=== PATIENT | male | born 1985 | race Caucasian/White ===

== ENCOUNTER 2020-04-27 20:43 | Emergency (ER) | payer OTHER ==
[~2020-04-27] VITALS: Ht 185.4 cm; Wt 127.3 kg
[2020-04-27] MEDS ORDERED: ARIP5TAB8 PO (21:14)
[2020-04-27] MEDS ORDERED: TOPI100T37 PO (21:14)
[2020-04-27] MEDS ORDERED: GABA-1181 PO (21:14)
[2020-04-27 22:59] LABS: BASOPHILS % (AUTO) 0.5 % (0.0-2.0); EOSINOPHILS % (AUTO) 2.2 % (1.0-6.0); HEMATOCRIT 41.4 % (41-53); HEMOGLOBIN 13.9 g/dL (13.5-17.5); LYMPHOCYTES # (AUTO) 2.8 K/uL (1.0-4.8); LYMPHOCYTES % (AUTO) 33.6 % (22.0-44.0); MEAN CORPUSCULAR HGB CONC 33.5 G/dL (31.0-37.0); MEAN CORPUSCULAR VOLUME 87 fL (80-100); MONOCYTES # (AUTO) 0.8 K/uL (0.1-1.0); MONOCYTES % (AUTO) 9.4 % (2.0-9.0); NEUTROPHILS # (AUTO) 4.5 K/uL (1.8-7.7); NEUTROPHILS % (AUTO) 54.3 % (40.0-70.0); PLATELET COUNT (AUTO) 251 K/uL (150-450); RED BLOOD CELL COUNT(AUTO) 4.77 MIL/uL (4.50-5.90); RED CELL DISTRIBUTION WIDTH 13.8 % (11.5-14.5)
[2020-04-27 23:14] LABS: ANION GAP 9 mmol/L (8-16); CALCIUM, TOTAL 8.6 mg/dL (8.8-10.5); CARBON DIOXIDE 24 mmol/L (22-29); CHLORIDE 107 mmol/L (98-107); CREATININE 1.08 mg/dL (0.60-1.30); GLOMERULAR FILTR. RATE CALC > 60 mL/min (>60); GLUCOSE,RANDOM 104 mg/dL (70-110); POTASSIUM 3.8 mmol/L (3.5-5.1); SODIUM SERUM 140 mmol/L (136-145); UREA NITROGEN, BLOOD 13 mg/dL (7-18)
[2020-04-27 23:20] LABS: ALANINE AMINOTRANSFERASE 19 U/L (12-78); ALBUMIN 3.5 g/dL (3.4-5.0); ALKALINE PHOSPHATASE 88 U/L (46-116); ASPARTATE AMINOTRANSFERASE 8 U/L (15-37); BILIRUBIN,TOTAL 0.2 mg/dL (0.1-1.0); TOTAL PROTEIN, SERUM 6.7 g/dL (6.4-8.2)
[2020-04-28 00:53] LABS: AMPHET/METH SCREEN,URINE NEGATIVE (NEGATIVE); BARBITURATE SCREEN, URINE NEGATIVE (NEGATIVE); BENZODIAZEPINES SCREEN,URINE NEGATIVE (NEGATIVE); CANNABINOID SCREEN,URINE NEGATIVE (NEGATIVE); COCAINE SCREEN,URINE NEGATIVE (NEGATIVE); METHADONE SCREEN, URINE NEGATIVE (NEGATIVE); OPIATE SCREEN,URINE NEGATIVE (NEGATIVE)
[2020-04-28 00:59] LABS: PHENCYCLIDINE SCREEN,URINE NEGATIVE (NEGATIVE)
[2020-04-28 01:13] VITALS: BP 132/80
== END 2020-04-28 01:31 | disposition home or self-care (01) ==
LOC: EMS 20:44
DX: F31.9 Bipolar disorder, unspecified (principal); F41.9 Anxiety disorder, unspecified
CPT/HCPCS: 36415; 80053; 80307; 85025; 99285; G0480

== ENCOUNTER 2020-04-28 16:06 | Inpatient (IN) | payer MEDICAID ==
[~2020-04-28] VITALS: Ht 185.4 cm; Wt 119.9 kg
[~2020-04-28 16:06] MED LIST: ARIP5TAB8 PO; GABA-1181 PO; TOPI100T37 PO
[2020-04-28] MEDS ORDERED: ZOLPIDEM TARTRATE 10 MG TABLET PO PRN (21:00)
[2020-04-28] MEDS ORDERED: INFLUENZA VIRUS VACCINE QVS 2020-21 (6MO+)/PF 60 MCG/0.5 ML SYRINGE IM ONE (21:30)
[2020-04-29 00:14] VITALS: BP 127/77
[2020-04-29] MEDS ORDERED: DOCUSATE SODIUM 100 MG CAPSULE PO PRN (07:45)
[2020-04-29] MEDS ORDERED: LOPERAMIDE HCL 2 MG CAPSULE PO PRN (07:45)
[2020-04-29] MEDS ORDERED: ALBUTEROL SULFATE HFA 90 MCG/PUFF 8 GM INHALER IH PRN (07:45)
[2020-04-29] MEDS ORDERED: IBUPROFEN 400 MG TABLET PO PRN (07:45)
[2020-04-29] MEDS ORDERED: ONDANSETRON HCL 4 MG TABLET PO PRN (07:45)
[2020-04-29] MEDS ORDERED: CloNIDine HCL 0.1 MG TABLET PO PRN (07:45)
[2020-04-29] MEDS ORDERED: GuaiFENesin/D-METHORPHAN [SUGAR-FREE] 200-20MG/10 ML SYRUP UDCUP PO PRN (07:45)
[2020-04-29] MEDS ORDERED: NICOTINE 14 MG/24 HOUR PATCH TD PRN (07:45)
[2020-04-29] MEDS ORDERED: ACETAMINOPHEN 325 MG TABLET PO PRN (07:45)
[2020-04-29] MEDS ORDERED: PETROLATUM,WHITE 28 GM JELLY TP PRN (07:45)
[2020-04-29] MEDS ORDERED: MAGNESIUM HYDROXIDE SUSPENSION 30 ML UDCUP PO PRN (07:45)
[2020-04-29] MEDS ORDERED: MAG HYDROX/AL HYDROX/SIMETH ES 30 ML SUSPENSION UDCUP PO PRN (07:45)
[2020-04-29 07:53] VITALS: BP 132/77
[2020-04-29 07:53] LABS: BASOPHILS % (AUTO) 0.5 % (0.0-2.0); EOSINOPHILS % (AUTO) 2.5 % (1.0-6.0); HEMATOCRIT 40.8 % (41-53); HEMOGLOBIN 14.3 g/dL (13.5-17.5); LYMPHOCYTES # (AUTO) 2.3 K/uL (1.0-4.8); LYMPHOCYTES % (AUTO) 25.8 % (22.0-44.0); MEAN CORPUSCULAR HEMOGLOBIN 29.8 pg (26.0-34.0); MEAN CORPUSCULAR HGB CONC 34.9 G/dL (31.0-37.0); MEAN CORPUSCULAR VOLUME 85 fL (80-100); MONOCYTES # (AUTO) 0.8 K/uL (0.1-1.0); MONOCYTES % (AUTO) 8.6 % (2.0-9.0); NEUTROPHILS # (AUTO) 5.5 K/uL (1.8-7.7); NEUTROPHILS % (AUTO) 62.6 % (40.0-70.0); PLATELET COUNT (AUTO) 253 K/uL (150-450); RED BLOOD CELL COUNT(AUTO) 4.79 MIL/uL (4.50-5.90); RED CELL DISTRIBUTION WIDTH 13.4 % (11.5-14.5)
[2020-04-29 08:22] LABS: ALANINE AMINOTRANSFERASE 22 U/L (12-78); ALBUMIN 3.4 g/dL (3.4-5.0); ALKALINE PHOSPHATASE 91 U/L (46-116); ANION GAP 11 mmol/L (8-16); ASPARTATE AMINOTRANSFERASE 12 U/L (15-37); BILIRUBIN,TOTAL 0.2 mg/dL (0.1-1.0); CALCIUM, TOTAL 8.7 mg/dL (8.8-10.5); CARBON DIOXIDE 20 mmol/L (22-29); CHLORIDE 108 mmol/L (98-107); CHOL/HDL RATIO 5.7 (4.2-7.3); CHOLESTEROL 143 mg/dL (131-200); FREE T4 (FREE THYROXINE) 0.92 ng/dL (0.76-1.46); GLOMERULAR FILTR. RATE CALC > 60 mL/min (>60); GLUCOSE,RANDOM 94 mg/dL (70-110); HDL CHOLESTEROL 25 mg/dL (40-60); LDL CHOL (CALC.) 68 mg/dL (0-130); POTASSIUM 3.8 mmol/L (3.5-5.1); SODIUM SERUM 139 mmol/L (136-145); THYROID STIMULATING HORMONE 2.93 uIU/mL (0.36-3.74); TOTAL PROTEIN, SERUM 6.8 g/dL (6.4-8.2); TRIGLYCERIDES 252 mg/dL (15-150); UREA NITROGEN, BLOOD 18 mg/dL (7-18)
[2020-04-29 08:29] VITALS: BP 132/77
[2020-04-29 08:33] LABS: HEMOGLOBIN A1C 5.2 % (3.8-5.6)
[2020-04-29] MEDS: LORazepam 2 MG TABLET PO PRN (09:03)
[2020-04-29] MEDS: ARIPiprazole 15 MG TABLET PO SCH (13:33)
[2020-04-29 16:50] VITALS: BP 127/79
[2020-04-29] MEDS: TOPIRAMATE 100 MG TABLET PO SCH (16:55)
[2020-04-29] MEDS: GABAPENTIN 300 MG CAPSULE PO SCH (16:55)
[2020-04-30 00:21] VITALS: BP 125/75
[2020-04-30] MEDS: ARIPiprazole 15 MG TABLET PO SCH (08:22)
[2020-04-30] MEDS: GABAPENTIN 300 MG CAPSULE PO SCH ×2 (08:22→16:20)
[2020-04-30] MEDS: TOPIRAMATE 100 MG TABLET PO SCH ×2 (08:22→16:20)
[2020-04-30 08:27] VITALS: BP 110/71
[2020-04-30] MEDS: LORazepam 2 MG TABLET PO PRN (08:27)
[2020-04-30] MEDS ORDERED: ARIPiprazole 15 MG TABLET PO SCH (09:00)
[2020-04-30 16:05] VITALS: BP 136/81
[2020-05-01 00:15] VITALS: BP 119/67
[2020-05-01] MEDS: LORazepam 2 MG TABLET PO PRN ×3 (05:42→20:32)
[2020-05-01 08:14] VITALS: BP 126/68
[2020-05-01] MEDS: GABAPENTIN 300 MG CAPSULE PO SCH ×2 (09:06→16:14)
[2020-05-01] MEDS: ARIPiprazole 15 MG TABLET PO SCH (09:06)
[2020-05-01] MEDS: TOPIRAMATE 100 MG TABLET PO SCH ×2 (09:06→16:14)
[2020-05-01 16:06] VITALS: BP 135/81
[2020-05-01] MEDS: HALOPERIDOL 5 MG TABLET PO PRN (18:49)
[2020-05-02] VITALS: BP 132/76
[2020-05-02 08:15] VITALS: BP 134/89
[2020-05-02] MEDS: GABAPENTIN 300 MG CAPSULE PO SCH ×2 (08:49→16:43)
[2020-05-02] MEDS: ARIPiprazole 15 MG TABLET PO SCH (08:49)
[2020-05-02] MEDS: TOPIRAMATE 100 MG TABLET PO SCH ×2 (08:49→16:43)
[2020-05-02] MEDS: HALOPERIDOL 5 MG TABLET PO PRN ×3 (09:30→22:29)
[2020-05-02] MEDS: LORazepam 2 MG TABLET PO PRN (12:20)
[2020-05-02 16:30] VITALS: BP 114/66
[2020-05-02] MEDS: OLANZapine 5 MG TABLET PO SCH (21:00)
[2020-05-03 06:09] VITALS: BP 111/72
[2020-05-03] MEDS: HALOPERIDOL 5 MG TABLET PO PRN ×2 (08:23→17:10)
[2020-05-03] MEDS: TOPIRAMATE 100 MG TABLET PO SCH ×2 (08:23→17:09)
[2020-05-03] MEDS: GABAPENTIN 300 MG CAPSULE PO SCH ×2 (08:23→17:09)
[2020-05-03] MEDS: OLANZapine 5 MG TABLET PO SCH ×3 (08:24→20:08)
[2020-05-03 08:42] VITALS: BP 127/69
[2020-05-03 16:12] VITALS: BP 117/64
[2020-05-04 02:50] VITALS: BP 127/79
[2020-05-04] MEDS: HALOPERIDOL 5 MG TABLET PO PRN ×3 (02:51→17:33)
[2020-05-04 08:19] VITALS: BP 135/60
[2020-05-04] MEDS: TOPIRAMATE 100 MG TABLET PO SCH ×2 (09:05→16:51)
[2020-05-04] MEDS: OLANZapine 5 MG TABLET PO SCH ×2 (09:05→21:04)
[2020-05-04] MEDS: GABAPENTIN 300 MG CAPSULE PO SCH ×2 (09:05→16:51)
[2020-05-04 16:06] VITALS: BP 123/61
[2020-05-05 01:05] VITALS: BP 118/72
[2020-05-05 08:13] VITALS: BP 135/68
[2020-05-05] MEDS: OLANZapine 5 MG TABLET PO SCH ×2 (08:39→20:18)
[2020-05-05] MEDS: TOPIRAMATE 100 MG TABLET PO SCH ×2 (08:39→16:20)
[2020-05-05] MEDS: GABAPENTIN 300 MG CAPSULE PO SCH ×2 (08:40→16:20)
[2020-05-05] MEDS: LORazepam 2 MG TABLET PO PRN ×2 (09:55→15:35)
[2020-05-05] MEDS: HALOPERIDOL 5 MG TABLET PO PRN (12:24)
[2020-05-05 16:09] VITALS: BP 132/64
[2020-05-06] MEDS: HALOPERIDOL 5 MG TABLET PO PRN ×3 (02:04→17:06)
[2020-05-06 04:26] VITALS: BP 137/89
[2020-05-06] MEDS: OLANZapine 5 MG TABLET PO SCH ×2 (08:02→20:15)
[2020-05-06] MEDS: TOPIRAMATE 100 MG TABLET PO SCH ×2 (08:02→16:58)
[2020-05-06] MEDS: GABAPENTIN 300 MG CAPSULE PO SCH ×2 (08:02→16:58)
[2020-05-06 08:58] VITALS: BP 127/89
[2020-05-06 17:10] VITALS: BP 105/64
[2020-05-07 01:44] VITALS: BP 131/59
[2020-05-07] MEDS: HALOPERIDOL 5 MG TABLET PO PRN (08:18)
[2020-05-07] MEDS: OLANZapine 5 MG TABLET PO SCH (08:18)
[2020-05-07] MEDS: GABAPENTIN 300 MG CAPSULE PO SCH (08:18)
[2020-05-07] MEDS: TOPIRAMATE 100 MG TABLET PO SCH (08:18)
[2020-05-07 08:36] VITALS: BP 122/78
[2020-05-07] MEDS ORDERED: OLAN10TA3 PO (09:04)
[2020-05-07] MEDS ORDERED: GABA-1181 PO (09:04)
== END 2020-05-07 13:00 | disposition home or self-care (01) | DRG 753 ==
LOC: UNDOADMIN 20:48 → B2S 20:48
PROVIDERS: ADMIT Psychiatry & Neurology Psychiatry; ATTEND Psychiatry & Neurology Psychiatry
DX: F31.5 Bipolar disorder, current episode depressed, severe, with psychotic features (principal); R45.851 Suicidal ideations; E78.00 Pure hypercholesterolemia, unspecified; E78.5 Hyperlipidemia, unspecified; F10.10 Alcohol abuse, uncomplicated; G44.209 Tension-type headache, unspecified, not intractable; K59.00 Constipation, unspecified; F19.10 Other psychoactive substance abuse, uncomplicated; F99 Mental disorder, not otherwise specified; Z81.8 Family history of other mental and behavioral disorders; Z28.21 Immunization not carried out because of patient refusal
CPT/HCPCS: 83036; 84439; 84443

== ENCOUNTER 2020-04-28 18:52 | Emergency (ER) | payer MEDICAID, OTHER ==
[~2020-04-28] VITALS: Ht 185.4 cm; Wt 127.0 kg
[2020-04-28 20:16] LABS: COVID AG,FIA SOURCE NASOPHARYNGEAL
[2020-04-28 21:40] VITALS: BP 125/64
== END 2020-04-28 22:30 | disposition home or self-care (01) ==
LOC: EMS 18:52
DX: R45.851 Suicidal ideations (principal); Z20.828 Contact with and (suspected) exposure to other viral communicable diseases; Z79.899 Other long term (current) drug therapy
CPT/HCPCS: 87426